=== PATIENT | female | born 2000 | race Hispanic/Latino ===

== ENCOUNTER 2022-07-24 03:29 | Inpatient (IN) | payer MEDICARE, OTHER ==
[2022-07-24] VITALS (47 sets, daily range): BP systolic 96–141; BP diastolic 55–85
[~2022-07-24] VITALS: Ht 152.4 cm; Wt 65.4 kg
[2022-07-24] MEDS ORDERED: PENICILLIN G POTASSIUM IV 5 MU in D5W MINI-BAG PLUS 100 ML IV STA (04:50)
[2022-07-24 05:01] LABS: HEMATOCRIT 32.4 % (36.0-47.0); HEMOGLOBIN 10.5 g/dl (12.0-15.5); MEAN CORPUSCULAR HEMOGLOBIN 24.5 pg (27.0-33.0); MEAN CORPUSCULAR HGB CONC 32.4 g/dl (32.0-36.5); MEAN CORPUSCULAR VOLUME 75.7 fl (80.0-96.0); PLATELET COUNT, AUTOMATED 218 10^3/uL (150-450); RED BLOOD COUNT 4.28 10^6/uL (4.00-5.40); WHITE BLOOD COUNT 9.6 10^3/uL (4.0-10.0)
[2022-07-24] MEDS ORDERED: LR 1,000 ML IV ONE (05:10)
[2022-07-24] MEDS ORDERED: BUTORPHANOL 2 MG/ML INJ (J0595) IV ONE (05:20)
[2022-07-24] MEDS ORDERED: PROMETHAZINE 25MG/ML 1ML VIAL IV ONE (05:20)
[2022-07-24] MEDS: PENICILLIN G POTASSIUM IV 2.5 MU in IV 1 EA IV SCH ×3 (08:54→17:20)
[2022-07-24] MEDS: LR 1,000 ML IV SCH ×3 (08:54→18:03)
[2022-07-24] MEDS ORDERED: NALOXONE INJ 0.4MG/1ML VIAL (J2310 PER 1MG) IV PRN (11:10)
[2022-07-24] MEDS ORDERED: FENTANYL/ROPIVACAINE/NACL BAG 100 ML EPIDURAL SCH (11:10)
[2022-07-24] MEDS ORDERED: diphenhydrAMINE 50MG/ML VIAL (J1200) IV PRN (11:10)
[2022-07-24] MEDS ORDERED: FENTANYL 2MCG/ML ROPIVACAINE 0.2% IN 0.9% NACL 100ML IVBAG As Ordered ONE (11:10)
[2022-07-24] MEDS ORDERED: EPIDURAL/PCA KEYS XX PRN (11:10)
[2022-07-24] MEDS ORDERED: ONDANSETRON 4MG 2ML VIAL IV PRN (11:10)
[2022-07-24] MEDS ORDERED: ePHEDrine SULFATE 25 MG/5 ML(5MG/ML) SYRINGE IVP PRN (11:10)
[2022-07-24] MEDS ORDERED: OXYTOCIN 30 UNITS IN 0.9% NaCl 500ML IV BAG (J2590) As Ordered ONE (19:11)
[2022-07-24] MEDS ORDERED: METHYLERGONOVINE MALEATE 0.2 MG TAB PO PRN (21:00)
[2022-07-24] MEDS ORDERED: DIBUCAINE 1% OINTMENT 30GM TOP PRN (21:00)
[2022-07-24] MEDS ORDERED: RHOGAM 300 MCG (1500 IU) INJ (J2790) IM SCH (21:00)
[2022-07-24] MEDS ORDERED: DOCUSATE SODIUM 100MG CAPSULE PO PRN (21:00)
[2022-07-24] MEDS ORDERED: OXYTOCIN DRIP 30 UNITS in IV 1 EA IV SCH (22:25)
[2022-07-25] MEDS: IBUPROFEN 600MG TAB PO PRN ×3 (00:05→20:34)
[2022-07-25 05:45] VITALS: BP 91/53
[2022-07-25 07:33] LABS: HEMATOCRIT 26.9 % (36.0-47.0); MEAN CORPUSCULAR HEMOGLOBIN 23.8 pg (27.0-33.0); MEAN CORPUSCULAR HGB CONC 31.2 g/dl (32.0-36.5); MEAN CORPUSCULAR VOLUME 76.2 fl (80.0-96.0); PLATELET COUNT, AUTOMATED 165 10^3/uL (150-450); RED BLOOD COUNT 3.53 10^6/uL (4.00-5.40); WHITE BLOOD COUNT 12.3 10^3/uL (4.0-10.0)
[2022-07-25 07:39] LABS: HEMOGLOBIN 8.4 g/dl (12.0-15.5)
[2022-07-25] MEDS: PRENATAL VITAMINS CHEWABLE TABLET PO SCH (09:16)
[2022-07-25] MEDS: ACETAMINOPHEN 500 MG TAB PO PRN ×2 (11:42→18:11)
[2022-07-25 18:28] VITALS: BP 103/72
[2022-07-26 06:10] VITALS: BP 119/82
[2022-07-26] MEDS: PRENATAL VITAMINS CHEWABLE TABLET PO SCH (08:57)
[2022-07-26] MEDS ORDERED: MEASLES,MUMPS,RUBELLA VACCINE INJ (MMR-II) (90707) SC.IMMUN ONE (09:00)
[2022-07-26] MEDS ORDERED: ACET-683 PO (11:12)
[2022-07-26] MEDS ORDERED: IBUP-1022 PO (11:12)
[2022-07-26] MEDS ORDERED: COLA100C5 PO (11:12)
[2022-07-26] MEDS ORDERED: NORE0.353 PO (11:12)
[2022-07-26] MEDS ORDERED: HOME MED LIST COMPLETE! XX SCH (12:30)
== END 2022-07-26 14:01 | disposition home or self-care (01) | DRG 560 ==
LOC: M LDO 03:29 → M LDI 04:17 → M OBS 22:57
PROVIDERS: ADMIT Specialist; ATTEND Obstetrics & Gynecology
PROC: 10E0XZZ Delivery of Products of Conception, External Approach (ICD-10-PCS; principal; 2022-07-24)
PROC: 0HQ9XZZ Repair Perineum Skin, External Approach (ICD-10-PCS; 2022-07-24)
PROC: 10907ZC Drainage of Amniotic Fluid, Therapeutic from Products of Conception, Via Natural or Artificial Opening (ICD-10-PCS; 2022-07-24)
DX: O32.6XX0 Maternal care for compound presentation, not applicable or unspecified (principal); O70.0 First degree perineal laceration during delivery; Z37.0 Single live birth; Z3A.39 39 weeks gestation of pregnancy